=== PATIENT | male | born 1950 | race Caucasian/White ===

== ENCOUNTER 2016-02-13 14:07 | Observation (INO) | payer MEDICARE, OTHER ==
[2016-02-13] MEDS ORDERED: Diltiazem IV* 5 MG/ML 5 ML VIAL (for loading dose/IV Push) (25 MG) IV PUSH ONE (14:50)
[2016-02-13] MEDS ORDERED: NS 0.9% 1000 ML* 2,000 ML IV ONE (14:50)
[2016-02-13] MEDS ORDERED: Diltiazem DRIP* 100 MG/100 ML ADDV.BAG IVPB ONE (14:50)
[2016-02-13 15:10] LABS: Hematocrit 42 % (42-52); Hemoglobin 14.2 g/dl (14.0-18.0); Mean Corpuscular HGB Conc 34 g/dl (31-36); Mean Corpuscular Hemoglobin 33 pg (27-31); Mean Corpuscular Volume 99 fL (80-94); Mean Platelet Volume 10 um3 (7.4-10.4); Red Blood Count 4.24 10^6/ul (4.0-5.4); Red Cell Distribution Width 14 % (10.5-15); White Blood Count 6.5 10^3/ul (3.5-10.8)
--- NOTE | 2016-02-13 15:21 | RAD ---
Indication: Palpitations, cardiomegaly. Mitral valve replacement in 2004. History of endocarditis. Tobacco use. Comparison: January 31, 2012 Technique: Upright AP 1500 hours Report: Clear lungs and pleural spaces. Negative for pneumothorax. Median sternotomy wires. Negative for cardiomegaly. Unremarkable central pulmonary vasculature and mediastinal contours. Mild worsening of LEFT convex curve at the mid to distal thoracic spine compared with the 2012 exam. IMPRESSION: No evidence for acute intrathoracic disease.
[2016-02-13 15:22] LABS: ALT 127 U/L (7-52); AST 187 U/L (13-39); Alkaline Phosphatase 61 U/L (34-104); Anion Gap 8 mmol/L (2-11); BUN/Creatinine Ratio 13.3 (8-20); Blood Urea Nitrogen 13 mg/dL (6-24); CO2 Carbon Dioxide 26 mmol/L (22-32); Calcium 9.2 mg/dL (8.6-10.3); Chloride 104 mmol/L (101-111); EGFR African American 98.1 (>60); EGFR Non-African American 76.3 (>60); Globulin 2.3 g/dL (2-4); Glucose 123 mg/dL (70-100); Magnesium 1.6 mg/dL (1.9-2.7); Potassium 3.9 mmol/L (3.5-5.0); Sodium 138 mmol/L (133-145); Total Protein 6.3 g/dL (6.4-8.9)
[2016-02-13 15:24] LABS: Troponin I 0.01 ng/mL (<0.04)
[2016-02-13] MEDS ORDERED: Magnesium Sulfate 2 GM IV* 2 GM/50 ML BAG IVPB ONE ×2 (15:31→17:29)
[2016-02-13 15:33] LABS: TSH (Thyroid Stimulating Horm) 3.17 mcIU/mL (0.34-5.60)
--- NOTE | 2016-02-13 17:05 | ED ---
I, Oh,Sorene, scribed for Neftali Bolton MD on 02/13/16 at 1449 . Palpitations / Dysrhythmia - HPI Summary HPI Summary: HPI is somewhat limited due to pt being poor historian. Collateral was obtained from daughter present at bedside. This 66 y/o male presents to ED for intermittent rapid, skipping HR since a week ago. Pt states that HR "came down to 60s from time to time". Pt also reports SOB, near syncope, but denies any focal weakness, recent flu symptoms, slurred speech, or CORRAL. PMHx includes afib with hx of electrical cardioversion in 2-3 years ago. Other PMHx includes endocarditis. Pt is currently on metoprolol 25 mg qd, but is not on any blood thinner. Daughter reports that Pt is used to be on ASA but has been noncompliant recently. Primary care involves Dr. Celestin as his clinical trial leader, but pt has neglected to f/u with him recently. Mitral valve repair in 2003. - History of Current Complaint Chief Complaint: EDDysrhythmPalp Time Seen by Provider: 02/13/16 14:34 Hx Obtained From: Patient, Family/Co Director Onset/Duration: Gradual Onset Timing: Intermittent Episodes Lasting: Severity Initially: Moderate Severity Currently: Moderate Character: Fast, Irregular Aggravating: Nothing Alleviating: Nothing Associated Signs & Symptoms: Syncope - near, Shortness of Breath - Allergy/Home Medications Allergies/Adverse Reactions: Allergies Allergy/AdvReac Type Severity Reaction Status Date / Time No Known Allergies Allergy Verified 02/13/16 14:18 Home Medications: Home Medications Metoprolol Succinate XL TAB* [Toprol XL TAB*] 25 mg PO DAILY 02/13/16 [History Confirmed 02/13/16] PMH/Surg Hx/FS Hx/Imm Hx Cardiovascular History: Reports: Hx Atrial Fibrillation, Hx Valvular Heart Disease - MV replacement 1996, Other Cardiovascular Problems/Disorders - endocarditis Musculoskeletal History: Reports: Hx Gout - rt elbow Sensory History: Reports: Hx Contacts or Glasses - glasses not w/ pt at this time Opthamlomology History: Reports: Hx Contacts or Glasses - glasses not w/ pt at this time - Surgical History Surgery Procedure, Year, and Place: MV replaced 1996 Infectious Disease History: No Infectious Disease History: Denies: Traveled Outside the [place] in Last 30 Days - Family History Known Family History: Positive: Cardiac Disease - Mother -- CHF. at 86. , Respiratory Disease - Mother -- COPD. at 86. - Social History Alcohol Use: Daily - 5 beers everyday Hx Substance Use: No Substance Use Type: Reports: None Hx Tobacco Use: Yes Smoking Status (MU): Current Every Day Smoker Review of Systems Negative: Fever Positive: Palpitations. Negative: Chest Pain Positive: Shortness Of Breath Positive: Syncope - near. Negative: Headache, Weakness, Numbness, Slurred Speech All Other Systems Reviewed And Are Negative: Yes Physical Exam - Summary Physical Exam Summary: The patient is well-nourished in no acute distress and in no acute pain. The skin is diaphoretic. HEENT: The head is normocephalic and atraumatic. The pupils are equal and reactive. The conjunctivae are clear and without drainage. Nares are patent and without drainage. Mouth reveals moist mucous membranes and the throat is without erythema and exudate. The external ears are intact. The ear canals are patent and without drainage. The tympanic membranes are intact. Neck is supple with full range of motion and non-tender. There are no carotid bruits. There is no neck vein distension. Respiratory: Chest is non-tender. Lungs are clear to auscultation and breath sounds are symmetrical and equal. Cardiovascular: Hear is irregular and tachycardic. There is no murmur or rub auscultated. There is no peripheral edema and pulses are symmetrical and equal. Abdomen: The abdomen is soft and non-tender. There are normal bowel sounds heard in all four quadrants and there is no organomegaly palpated. Musculoskeletal: There is no back pain noted. Extremities are non-tender with full range of motion. There is good capillary refill. There is no peripheral edema or calf tenderness elicited. No pitting edema Neurological: Patient is alert and oriented to person, place and time. The patient has symmetrical motor strength in all four extremities. Cranial nerves are grossly intact. Deep tendon reflexes are symmetrical and equal in all four extremities. Psychiatric: The patient has an appropriate affect and does not exhibit any anxiety or depression. Triage Information Reviewed: Yes Vital Signs On Initial Exam: Initial Vitals Temp Pulse Resp BP Pulse Ox 98.5 F 135 18 113/80 100 02/13/16 14:15 02/13/16 14:15 02/13/16 14:15 02/13/16 14:15 02/13/16 14:15 Vital Signs Reviewed: Yes Diagnostics - Vital Signs Vital Signs Temp Pulse Resp BP Pulse Ox 02/13/16 14:15 98.5 F 135 18 113/80 100 - Laboratory Lab Results: Lab Results 02/13/16 02/13/16 02/13/16 Range/Units 14:35 14:35 14:35 WBC 6.5 (3.5-10.8) 10^3/ul RBC 4.24 (4.0-5.4) 10^6/ul Hgb 14.2 (14.0-18.0) g/dl Hct 42 (42-52) % MCV 99 H (80-94) fL MCH 33 H (27-31) pg MCHC 34 (31-36) g/dl RDW 14 (10.5-15) % Plt Count 172 (150-450) 10^3/ul MPV 10 (7.4-10.4) um3 Neut % (Auto) 61.3 (38-83) % Lymph % (Auto) 25.7 (25-47) % [place] % (Auto) 6.0 (1-9) % Eos % (Auto) 6.3 H (0-6) % Baso % (Auto) 0.7 (0-2) % Absolute Neuts (auto) 4.0 (1.5-7.7) 10^3/ul Absolute Lymphs (auto) 1.7 (1.0-4.8) 10^3/ul Absolute Monos (auto) 0.4 (0-0.8) 10^3/ul Absolute Eos (auto) 0.4 (0-0.6) 10^3/ul Absolute Basos (auto) 0 (0-0.2) 10^3/ul Absolute Nucleated RBC 0 10^3/ul Nucleated RBC % 0.1 INR (Anticoag Therapy) (0.89-1.11) Sodium 138 (133-145) mmol/L Potassium 3.9 (3.5-5.0) mmol/L Chloride 104 (101-111) mmol/L Carbon Dioxide 26 (22-32) mmol/L Anion Gap 8 (2-11) mmol/L BUN 13 (6-24) mg/dL Creatinine 0.98 (0.67-1.17) mg/dL Est GFR ( Amer) 98.1 (>60) Est GFR (Non-Af Amer) 76.3 (>60) BUN/Creatinine Ratio 13.3 (8-20) Glucose 123 H (70-100) mg/dL Lactic Acid 1.9 (0.5-2.0) mmol/L Calcium 9.2 (8.6-10.3) mg/dL Magnesium 1.6 L (1.9-2.7) mg/dL Total Bilirubin 0.50 (0.2-1.0) mg/dL AST 187 H (13-39) U/L ALT 127 H (7-52) U/L Alkaline Phosphatase 61 (34-104) U/L Troponin I 0.01 (<0.04) ng/mL Total Protein 6.3 L (6.4-8.9) g/dL Albumin 4.0 (3.2-5.2) g/dL Globulin 2.3 (2-4) g/dL Albumin/Globulin Ratio 1.7 (1-3) TSH 3.17 (0.34-5.60) mcIU/mL 02/13/16 Range/Units 14:35 WBC (3.5-10.8) 10^3/ul RBC (4.0-5.4) 10^6/ul Hgb (14.0-18.0) g/dl Hct (42-52) % MCV (80-94) fL MCH (27-31) pg MCHC (31-36) g/dl RDW (10.5-15) % Plt Count (150-450) 10^3/ul MPV (7.4-10.4) um3 Neut % (Auto) (38-83) % Lymph % (Auto) (25-47) % [place] % (Auto) (1-9) % Eos % (Auto) (0-6) % Baso % (Auto) (0-2) % Absolute Neuts (auto) (1.5-7.7) 10^3/ul Absolute Lymphs (auto) (1.0-4.8) 10^3/ul Absolute Monos (auto) (0-0.8) 10^3/ul Absolute Eos (auto) (0-0.6) 10^3/ul Absolute Basos (auto) (0-0.2) 10^3/ul Absolute Nucleated RBC 10^3/ul Nucleated RBC % INR (Anticoag Therapy) 0.98 (0.89-1.11) Sodium (133-145) mmol/L Potassium (3.5-5.0) mmol/L Chloride (101-111) mmol/L Carbon Dioxide (22-32) mmol/L Anion Gap (2-11) mmol/L BUN (6-24) mg/dL Creatinine (0.67-1.17) mg/dL Est GFR ( Amer) (>60) Est GFR (Non-Af Amer) (>60) BUN/Creatinine Ratio (8-20) Glucose (70-100) mg/dL Lactic Acid (0.5-2.0) mmol/L Calcium (8.6-10.3) mg/dL Magnesium (1.9-2.7) mg/dL Total Bilirubin (0.2-1.0) mg/dL AST (13-39) U/L ALT (7-52) U/L Alkaline Phosphatase (34-104) U/L Troponin I (<0.04) ng/mL Total Protein (6.4-8.9) g/dL Albumin (3.2-5.2) g/dL Globulin (2-4) g/dL Albumin/Globulin Ratio (1-3) TSH (0.34-5.60) mcIU/mL Result Diagrams: 02/13/16 14:35 02/13/16 14:35 Lab Statement: Any lab studies that have been ordered have been reviewed, and results considered in the medical decision making process. - Radiology CXR Xray Interpretation: No Acute Changes Radiology Interpretation Completed By: Radiologist - EKG 1 EKG Rhythm: Atrial Fibrillation - RVR, 137 bpm Ectopy: PVCs EKG Interpretation: No ischemia. Nonspecific ST changes Re-Evaluation - Re-Evaluation First Eval Re-Evaluation Time: 16:41 Change: Unchanged Comment: MD in room to share imaging and lab results with pt and family members. Pt is still aflutter at the time of the re-eval. Family members and pt are agreeable to overnight hospital admission. Course/Dx - Diagnoses Differential Diagnosis/HQI/PQRI: Positive: Cardiomyopathy, Hypokalemia, Paroxymal SVT, Other - atrial fibrillation, atrial flutter Provider Diagnoses: Atrial flutter with rapid ventricular response Provider Diagnoses: (Ruled Out): Atrial flutter, paroxysmal - Physician Notifications Discussed Care Of Patient With: Dr. Gutierrez (Hospitalist) at 1547 PM Time Discussed With Above Provider: 15:47 Instructed by Provider To: Admit As Inpatient Discharge - Discharge Plan Condition: Improved Disposition: HOME Referrals: Ravinder Baca MD [Primary Care Provider] - The documentation as recorded by the Isaiah canseco Soohyun accurately reflects the service I personally performed and the decisions made by Che romo Drew, MD.
[2016-02-13] MEDS ORDERED: Metoprolol Tartrate IV* 1 MG/ML 5 ML VIAL IV PRN (17:25)
[2016-02-13] MEDS ORDERED: Acetaminophen TAB* 325 MG PO PRN (17:25)
[2016-02-13] MEDS ORDERED: Potassium Chlor TAB* 20 MEQ TAB.ER PO ONE (17:29)
[2016-02-13] MEDS ORDERED: Zolpidem TAB* 5 MG PO PRN (17:39)
[2016-02-13 17:48] LABS: Alcohol < 10 mg/dL (<10)
[2016-02-13] MEDS: Rivaroxaban TAB(*) 20 MG TAB PO SCH (17:58)
[2016-02-13] MEDS: Metoprolol Succinate XL TAB* 25 MG PO SCH (17:59)
[2016-02-13] MEDS ORDERED: LORazepam TAB(*) 1 MG PO SCH (18:00)
[2016-02-13] MEDS ORDERED: Rivaroxaban TAB(*) 10 MG PO SCH (18:00)
[2016-02-13] MEDS ORDERED: Diltiazem DRIP* 100 MG/100 ML ADDV.BAG IVPB SCH (19:00)
--- NOTE | 2016-02-13 23:00 | HP ---
HISTORY AND PHYSICAL: DATE OF ADMISSION: 02/13/16 PRIMARY CARE PROVIDER: Dr. Baca. ATTENDING PHYSICIAN WHILE IN THE HOSPITAL: Dr. Haile Gutierrez *(report being dictated by Rustam Santiago NP). CHIEF COMPLAINT: Palpitations. HISTORY OF PRESENT ILLNESS: Mr. Lobato is a 66-year-old male patient, has a history of atrial fibrillation, gout, depression, hypertension, history of endocarditis in the past in the setting of having a dental infection and he is status post mitral valve repair. He comes in to the ER today stating over the last 2 to 3 days, he has had worsening palpitations, fluttering in his chest. He has had more dyspnea on exertion. Today, he comes in stating that he was not feeling good. He felt like he was going to faint. He felt very lightheaded , having more palpitations, lasting longer. He took an extra 2 doses of his metoprolol XL, hopeful that he could slow down his rhythm, but he could not. He denied any chest pain. Does admit to dyspnea on exertion, but no orthopnea, no nocturnal dyspnea. Denies any swelling. No recent travel. No calf pain or leg tenderness. He was evaluated in the ER and was found that he was in AFib with RVR with a rate of 137. He has been cardioverted in the past. He normally sees Dr. Celestin, but he has not seen him in 3 years. He does state that he is still continuing to consume alcohol 5 to 6 beers a day. He does drink a cup of coffee in the morning and he also continues to smoke cigarettes. He was evaluated. There was concern because of the AFib with RVR. Hospitalist service was asked to evaluate for admission. PAST MEDICAL HISTORY: Significant for: 1. AFib. 2. Gout. 3. Depression. 4. Hypertension. 5. History of endocarditis. PAST SURGICAL HISTORY: He has had a mitral valve replacement. HOME MEDICATIONS: Include according to his list: 1. Paxil 20 mg daily. 2. Multivitamin 1 tablet daily. 3. Metoprolol XL 25 mg daily. 4. Lisinopril 5 mg daily. 5. Aspirin 81 mg daily. He says he stopped taking this several months ago. 6. Allopurinol 300 mg p.o. daily. ALLERGIES TO MEDICATIONS: Include no known drug allergies. FAMILY HISTORY: His mother had COPD and CHF. Father had a history of dementia. SOCIAL HISTORY: He is a half a pack a day smoker for about 40 years. He does drink caffeine on a daily basis. He drinks 5 to 6 beers a day. He is retired. Lives with his children. Surrogate decision maker is his daughter. REVIEW OF SYSTEMS: There is no documented fever. He denied having any significant weight change. There was no double vision. There was no ear discharge. No rhinorrhea. No sore throat. No thyroid enlargement. Denies having chest pain. There is palpitation. There is dyspnea on exertion. No orthopnea. No nocturnal dyspnea. No abdominal pain. No nausea. No vomiting. No dysuria. No frequency. No seizure. No loss of consciousness. No pruritus. No skin ulcerations. Review of 14 systems completed, all others negative. PHYSICAL EXAMINATION GENERAL: At this time, Mr. Lobato is a 66-year-old male patient. He does not appear to be in any acute distress. He is sitting in the ER stretcher. He is awake and he is alert. VITAL SIGNS: Blood pressure 124/75, pulse 87, respirations 18, O2 sat 96%, temperature 98.5. HEENT: Head: Atraumatic and normocephalic. Eyes: EOMs are intact. Sclerae anicteric and not pale. Throat: Oral mucosa appears to be moist. No oropharyngeal erythema. NECK: Supple. LUNGS: Clear to auscultation bilaterally. No wheezes, rales, or rhonchi. HEART: Sounds S1, S2. Irregularly irregular rate. No murmurs, rubs, or gallops. ABDOMEN: Soft, flat, nontender. Bowel sounds present. EXTREMITIES: Pulses 2+ throughout. Able to move all 4 extremities with 5/5 strength. NEUROLOGIC: The patient is awake, alert, and oriented x3. Tongue midline. Staff Attorney were equal. No gross focal deficits. SKIN: Grossly intact. LABORATORY DATA AND DIAGNOSTIC STUDIES: Today revealed WBC 6.5, RBC of 4.24, hemoglobin 14.2, hematocrit 42, platelet count 172. INR was 0.98. His sodium was 138, potassium 3.9, chloride 104, bicarb 26, BUN 13, creatinine 0.98, glucose 123, lactic 1.9, calcium 9.20. Total bili 0.5, AST 187, ALT 127, magnesium 1.6. Troponin 0.01. Albumin 4.0. His serum alcohol level is pending. He did have a chest x-ray obtained today which on my review, did not appreciate any acute infiltrates or effusions. Radiology read it as no evidence of acute intrathoracic disease. EKG today showed irregular rhythm. It may be atrial flutter with a 2:1 at a rate of 137. He had PVCs. He had no ST elevations or T-wave inversions. Previous EKGs do reveal atrial fibrillation in the past, the change today is that again that he is in now atrial flutter. Currently, his heart rate is 86 and he is in atrial fibrillation. Old medical records were reviewed. ASSESSMENT AND PLAN: Mr. Lobato is a 66-year-old male patient coming into the ER today with complaints of palpitations over the last 2 to 3 days. In addition to this, also has been having some issues today with shortness of breath, dyspnea on exertion, and feeling like he was going to faint. On evaluation here, he was found to be in atrial fibrillation with RVR. He will be admitted under observation status for: 1. Atrial fibrillation: At this point, the patient's heart rate is controlled. I am going to go ahead and give him a dose of metoprolol. I have actually increased him from 25 to 37.5 mg a day. We will give him a dose of that now with p.r.n. beta blockers. I have ordered p.r.n. Lopressor. I am going to try to get him off the diltiazem drip. We will start Xarelto. I did touch base with Cardiology. The plan will be for a [facility]-guided cardioversion. I had a long discussion about abstaining from caffeine, alcohol, and cigarette smoking for the time being. His mag was 1.6. I am going to give him another 2 g. In addition to this, I am going to get his potassium hopefully above 3.9 and in the 4 range. We will repeat the labs in the morning and his magnesium in the morning and repeat as needed. He will be n.p.o. after midnight for a planned ROO[facility]T-guided cardioversion. He will be started on Xarelto. 2. Gout: Continue allopurinol. 3. Hypertension: Continue meds as prescribed. 4. History of depression: Continue Paxil. 5. History of endocarditis: Not an active issue. We will follow. 6. DVT prophylaxis: He will be placed on Xarelto. 7. Code status: He is a full code. 8. FEN: He can have a heart healthy diet and n.p.o. after midnight. 9. History of ETOH use: At this point, we will go ahead and put him on a WAM protocol. 10. Tobacco abuse: I did discuss with him smoking cessation. He did not want a patch at this point. TIME SPENT: Time spent on the admission was 60 minutes; greater than half the time was spent [id number] with the patient obtaining my history and physical, other half the time spent going over the plan of care with the patient and implementing plan of care. I did discuss the plan of care with my attending, Dr. Gutierrez; he is in agreement. RUSTAM SANTIAGO NP CC: Dr. Baca; Dr. Barbosa; Dr. Celestin* [id number]/[facility] #: [id number] [facility]
[2016-02-14] MEDS ORDERED: NS 0.9% 1000 ML* 1,000 ML IV SCH
[2016-02-14 01:26] LABS: Urine Bilirubin Negative (Negative); Urine Glucose Negative (Negative); Urine Nitrite Negative (Negative)
[2016-02-14 04:47] LABS: Hematocrit 39 % (42-52); Hemoglobin 13.1 g/dl (14.0-18.0); Mean Corpuscular HGB Conc 33 g/dl (31-36); Mean Corpuscular Hemoglobin 33 pg (27-31); Mean Corpuscular Volume 100 fL (80-94); Mean Platelet Volume 10 um3 (7.4-10.4); Red Blood Count 3.94 10^6/ul (4.0-5.4); Red Cell Distribution Width 14 % (10.5-15); White Blood Count 5.4 10^3/ul (3.5-10.8)
[2016-02-14 04:59] LABS: Albumin 3.4 g/dL (3.2-5.2); Calcium 8.5 mg/dL (8.6-10.3); Direct Bilirubin 0.1 mg/dL (0.03-0.18); EGFR African American 105.5 (>60); EGFR Non-African American 82.1 (>60); Indirect Bilirubin 0.4 mg/dL (0.3-1.0); Magnesium 2.2 mg/dL (1.9-2.7); Potassium 4.6 mmol/L (3.5-5.0); Total Bilirubin 0.5 mg/dL (0.2-1.0); Total Protein 5.4 g/dL (6.4-8.9)
[2016-02-14] MEDS ORDERED: Folic Acid TAB* 1 MG PO SCH (09:00)
[2016-02-14] MEDS ORDERED: Allopurinol TAB* 300 MG PO SCH (09:00)
[2016-02-14] MEDS ORDERED: Thiamine TAB* 100 MG TAB PO SCH (09:00)
[2016-02-14] MEDS ORDERED: PARoxetine HCL TAB* 20 MG PO SCH (09:00)
[2016-02-14] MEDS ORDERED: Multivitamins/Minerals TAB PO SCH (09:00)
[2016-02-14] MEDS ORDERED: Lisinopril TAB* 5 MG PO SCH (09:00)
--- NOTE | 2016-02-14 10:12 | CONS ---
CARDIOLOGY CONSULTATION: DATE OF CONSULT: 02/14/16 INDICATION FOR CONSULT: Atrial fibrillation. HISTORY OF PRESENT ILLNESS: The patient is a 66-year-old gentleman with a history of mitral valve repair secondary to mitral valve prolapse, history of paroxysmal atrial fibrillation, who is admitted to the hospital with atrial fibrillation. The patient states that he noted that his heart was irregular about a week ago. He felt little bit more short of breath and then ultimately decided to come to the emergency room for his palpitations. The patient was found to be in atrial fibrillation. He was admitted to the hospital for evaluation. The patient's heart rate is under reasonable control here in the hospital. The patient denies any chest pain, orthopnea. PAST MEDICAL HISTORY: Significant for paroxysmal atrial fibrillation, gout, depression, hypertension. PAST SURGICAL HISTORY: Mitral valve repair in 2003, history of cardioversion in 2003 and 2011. OUTPATIENT MEDICATIONS: 1. Paxil 20 mg a day. 2. Multivitamin a day. 3. Toprol-XL 25 mg a day. 4. Lisinopril 5 mg a day. 5. Allopurinol 300 mg a day. ALLERGIES: No known drug allergies. FAMILY HISTORY: Father with a history of dementia. No history of early coronary artery disease. SOCIAL HISTORY: He smokes cigarettes about pack a day for the past 40 years. He drinks 4 to 5 beers a day. He is currently retired. REVIEW OF SYSTEMS: Negative for fevers and chills. Negative for changes in bowel or bladder habits. Negative in changes in weight. PHYSICAL EXAM: Height is 5 feet 9 inches, weight is 165 pounds, his heart rate is 82, blood pressure 131/89, respiratory rate is 16, temperature 97.5, oxygen saturation 97% on room air. Sclerae anicteric. Oropharynx is pink without erythema. Carotids are 2+ without bruits. JVD is normal. Thyroid is normal. Cardiac Exam: S1, S2 without any murmurs, rubs, or gallops. Lungs are clear to auscultation bilaterally. There is no dullness to percussion. Abdomen is soft, nontender, nondistended with normoactive bowel sounds. Extremities show no edema. He has 2+ pulses throughout. The patient is awake, alert, and oriented. He moves all 4 extremities equally. DIAGNOSTIC STUDIES/LAB DATA: The patient had a transesophageal echocardiogram in May of 2012, at that time, he was status post mitral valve repair, he had trace mitral regurgitation, he had mildly decreased LV systolic function, ejection fraction of 40%, no significant other valvular abnormalities. CBC within normal limits. Chemistries within normal limits. AST and ALT are minimally elevated. Troponin levels are normal. TSH 3.1. IMPRESSION: This is a 66-year-old gentleman with a history of mitral valve repair who has a history of paroxysmal atrial fibrillation. The patient states he has been in atrial fibrillation for about a week. The patient was admitted to the hospital. He was not in congestive heart failure. His heart rate was under reasonable control. PLAN: To have the patient undergo transesophageal echocardiogram and cardioversion back to normal sinus rhythm. The patient will be discharged on his usual medications with the addition of anticoagulation. The patient will see Dr. Celestin in followup. [id number] #: [id number] MATTHE[facility]
[2016-02-14] MEDS ORDERED: Naloxone* 0.4 MG/ML 1 ML VIAL ONE (10:50)
[2016-02-14] MEDS ORDERED: Flumazenil* 0.1 MG/ML 5 ML MDV ONE (10:50)
[2016-02-14] MEDS ORDERED: Lidocaine 2% VISCOUS* 15 ML UDC ONE (10:50)
[2016-02-14] MEDS ORDERED: fentaNYL* 50 MCG/ML 2 ML VIAL (100 MCG VIAL) ONE (10:50)
[2016-02-14] MEDS ORDERED: Midazolam* 1 MG/ML 5 ML VIAL (5 MG) ONE (10:50)
[2016-02-14] MEDS: Metoprolol Succinate XL TAB* 25 MG PO SCH (13:40)
[2016-02-14 14:29] VITALS: BP 120/79
--- NOTE | 2016-02-14 15:09 | TEE ---
Patient: ZANE BERRIOS [facility] Rec#: [id number] : 1950 Date: 02/14/2016 Age: 66y Height: 175.26 cm / 69.0 in Weight: 74.84 kg / 164.9 lbs Sex: M BSA: 1.9 Room#: 434 Type: Inpatient Referring: Rustam Santiago NP Performing: Sahil Alatorre MD Reading: Sahil Alatorre MD [employer] [place] Crew Member: Ondina Albert RDCS Nurse: Marian Noyola RN Nurse: Mauro Chan RN CC: Ravinder Baca MD Transesophageal Echocardiogram Indication: A-fib BP: 123/93 HR: 110 Rhythm: A-Fib Findings History: A-fib,gout,prior endocarditis,SIMMONS,ETOH,smoker. Technical Comments: The study is technically difficult. Pt was unruly during the procedure. Left Ventricle: The left ventricular chamber size is normal. Mild global hypokinesis of the left ventricle is observed. There is mildly decreased left ventricular systolic function. The estimated ejection fraction is 40-45%. Left Atrium: The left atrial chamber size is normal. There is no mass visualized in the left atrial appendage. The appendage has the appearance that it has been ligated. Right Ventricle: The right ventricular cavity size is normal. The right ventricular global systolic function is normal. Right Atrium: The right atrial cavity size is normal. Aortic Valve: The aortic valve is trileaflet. There is no evidence of aortic regurgitation. There is no evidence of aortic stenosis. Mitral Valve: There is prolapse of the anterior leaflet of the mitral valve. S/P MV repair There is mild to moderate mitral regurgitation. Tricuspid Valve: The tricuspid valve leaflets are normal. There is mild to moderate tricuspid regurgitation. Unable to estimate the right ventricular systolic pressure. Pulmonic Valve: The pulmonic valve appears normal. There is trace to mild pulmonic regurgitation. There is no pulmonic stenosis. Pericardium: There is no pericardial effusion. Aorta: There is borderline dilatation of the ascending aorta. The aortic root is normal in size. Pulmonary Artery: The main pulmonary artery appears normal. Venous: The bicaval view was unable to be obtained. Pulmonary veins were no interrogated. ROOSEVELT Procedures: History and physical as well as labs were reviewed. The patient was in a fasting state. Risks and benefits of the procedure, including alternatives, were discussed and written informed consent was obtained. The patient and/or their health care client care representative expressed understanding of the procedure, risks and benefits. Baseline and continuous monitoring of blood pressure, heart rate, pulse oximetry and heart rhythm was performed throughout the procedure. The appropriate time-out procedure was performed as per [facility] protocol. The patient was placed in the left lateral decubitus position. The patient's posterior pharynx was anesthetized with 20ml of 2% viscous lidocaine. The patient received IV Midazolam with a total dose of 7mg. The patient received IV Fentanyl with a total dose of 50mcg. An oral bite block was inserted for protection of oral dentition. The multiplane transesophageal echocardiogram probe was inserted through the posterior oropharynx and advanced into the esophagus without difficulty. Multiple 2D images were obtained of the heart and its related structures. Color flow Doppler was used for evaluation. Spectral Doppler was also used. The atrial septum was interrogated with color flow Doppler. At the conclusion of the procedure the probe was removed with continuous suction without complications. The patient tolerated the procedure with no apparent complications. Conclusions Mild global hypokinesis of the left ventricle is observed. There is mildly decreased left ventricular systolic function. The estimated ejection fraction is 40-45%. There is no mass visualized in the left atrial appendage. The appendage has the appearance that it has been ligated. The right ventricular global systolic function is normal. There is no evidence of aortic regurgitation. There is prolapse of the anterior leaflet of the mitral valve. S/P MV repair There is mild to moderate mitral regurgitation. There is mild to moderate tricuspid regurgitation. Unable to estimate the right ventricular systolic pressure. There is no pericardial effusion. Compared to ROOSEVELT from 2013 there is little change Measurements Name Value Normal Range Aortic Annulus 2.1 cm (1.4 - 2.6) Ao root diameter (2D) 3.5 cm (2.1 - 3.5) Ascending Ao 3.4 cm (2.1 - 3.4) Name Value Normal Range MV E-wave Vmax 1.1 m/sec - MV deceleration time 154 msec - Name Value Normal Range TR Vmax 2.5 m/sec - TR peak gradient 26 mmHg -
--- NOTE | 2016-02-14 16:05 | PN ---
Subjective Date of Service: 02/14/16 Interval History: Patient seen and examined at bedside. He is s/p ROOSEVELT cardioversion and is now in SR. He denies CP, SOB, abd pain, n/v. He has no acute complaints. He is hopeful for discharge later today. Telemetry: NSR 70s Family History: Unchanged from Admission Social History: Unchanged from Admission Past Medical History: Unchanged from Admission Objective Active Medications: Acetaminophen (Tylenol Tab*) 650 mg PO Q4H PRN PRN Reason: FEVER/PAIN Allopurinol (Zyloprim Tab*) 300 mg PO DAILY [facility] Last Admin: 02/14/16 13:39 Dose: 300 mg Dronedarone (Multaq Tab*) 400 mg PO BID [facility] Folic Acid (Folvite Tab*) 1 mg PO DAILY [facility] Last Admin: 02/14/16 13:40 Dose: 1 mg Sodium Chloride (Ns 0.9% 1000 Ml*) 1,000 mls @ 75 mls/hr IV PER RATE [facility] Last Admin: 02/14/16 00:10 Dose: 75 mls/hr Lisinopril (Prinivil Tab*) 5 mg PO DAILY [facility] Last Admin: 02/14/16 13:40 Dose: 5 mg Lorazepam (Ativan Tab(*)) 0 mg PO .PER WAM SCORE [facility] PRN Reason: Protocol Metoprolol Succinate (Toprol Xl Tab*) 37.5 mg PO DAILY [facility] Last Admin: 02/14/16 13:40 Dose: 37.5 mg Metoprolol Tartrate (Lopressor Iv*) 5 mg IV Q6H PRN PRN Reason: HEART RATE/PULSE Multivitamins/Minerals (Theragran/Minerals Tab*) 1 tab PO DAILY [facility] Last Admin: 02/14/16 13:42 Dose: 1 tab Paroxetine HCl (Paxil Tab*) 20 mg PO DAILY [facility] Last Admin: 02/14/16 13:42 Dose: 20 mg Rivaroxaban (Xarelto (*)) 20 mg PO 1700 [facility] Last Admin: 02/13/16 17:58 Dose: 20 mg Thiamine HCl (Vitamin B-1 Tab*) 100 mg PO DAILY [facility] Last Admin: 02/14/16 13:43 Dose: 100 mg Zolpidem Tartrate (Ambien Tab*) 5 mg PO BEDTIME PRN PRN Reason: INSOMNIA Last Admin: 02/13/16 20:01 Dose: 5 mg Vital Signs 02/13/16 02/13/16 02/13/16 17:30 19:20 20:23 Temperature 97.4 F 97.8 F Pulse Rate 86 87 89 Respiratory 16 16 16 Rate Blood Pressure 122/78 116/98 104/72 (mmHg) O2 Sat by Pulse 96 95 99 Oximetry 02/13/16 02/13/16 02/14/16 21:51 23:13 01:07 Temperature 97.5 F 97.5 F 98.1 F Pulse Rate 90 82 64 Respiratory 16 16 16 Rate Blood Pressure 105/60 131/89 121/72 (mmHg) O2 Sat by Pulse 100 97 100 Oximetry 02/14/16 02/14/16 02/14/16 03:12 04:58 07:14 Temperature 98.4 F 97.6 F 97.8 F Pulse Rate 88 80 85 Respiratory 16 16 16 Rate Blood Pressure 127/81 124/87 121/90 (mmHg) O2 Sat by Pulse 98 95 99 Oximetry 02/14/16 02/14/16 02/14/16 09:10 12:30 14:08 Temperature 98.4 F 97.8 F 97.7 F Pulse Rate 86 69 74 Respiratory 16 14 16 Rate Blood Pressure 123/93 103/71 120/79 (mmHg) O2 Sat by Pulse 96 99 99 Oximetry Oxygen Devices in Use Now: None Appearance: Male patient, well appearing, sitting up in hospital bed, in NAD Eyes: PERRLA Ears/Nose/Mouth/Throat: Clear Oropharnyx, Mucous Membranes Moist Neck: NL Appearance and Movements; NL JVP Respiratory: Symmetrical Chest Expansion and Respiratory Effort, Clear to Auscultation Cardiovascular: NL Sounds; No Murmurs; No JVD, RRR Abdominal: NL Sounds; No Tenderness; No Distention Extremities: No Edema Skin: No Rash or Ulcers Neurological: Alert and Oriented x 3 Lines/Tubes/Other Access: Clean, Dry and Intact Peripheral IV Nutrition: Taking PO's Result Diagrams: 02/14/16 04:16 02/14/16 04:16 Additional Lab and Data: Lab Results 02/13/16 02/13/16 02/13/16 Range/Units 14:35 14:35 14:35 WBC 6.5 (3.5-10.8) 10^3/ul RBC 4.24 (4.0-5.4) 10^6/ul Hgb 14.2 (14.0-18.0) g/dl Hct 42 (42-52) % MCV 99 H (80-94) fL MCH 33 H (27-31) pg MCHC 34 (31-36) g/dl RDW 14 (10.5-15) % Plt Count 172 (150-450) 10^3/ul MPV 10 (7.4-10.4) um3 Neut % (Auto) 61.3 (38-83) % Lymph % (Auto) 25.7 (25-47) % Foard % (Auto) 6.0 (1-9) % Eos % (Auto) 6.3 H (0-6) % Baso % (Auto) 0.7 (0-2) % Absolute Neuts (auto) 4.0 (1.5-7.7) 10^3/ul Absolute Lymphs (auto) 1.7 (1.0-4.8) 10^3/ul Absolute Monos (auto) 0.4 (0-0.8) 10^3/ul Absolute Eos (auto) 0.4 (0-0.6) 10^3/ul Absolute Basos (auto) 0 (0-0.2) 10^3/ul Absolute Nucleated RBC 0 10^3/ul Nucleated RBC % 0.1 INR (Anticoag Therapy) (0.89-1.11) Sodium 138 (133-145) mmol/L Potassium 3.9 (3.5-5.0) mmol/L Chloride 104 (101-111) mmol/L Carbon Dioxide 26 (22-32) mmol/L Anion Gap 8 (2-11) mmol/L BUN 13 (6-24) mg/dL Creatinine 0.98 (0.67-1.17) mg/dL Est GFR ( Amer) 98.1 (>60) Est GFR (Non-Af Amer) 76.3 (>60) BUN/Creatinine Ratio 13.3 (8-20) Glucose 123 H (70-100) mg/dL Lactic Acid 1.9 (0.5-2.0) mmol/L Calcium 9.2 (8.6-10.3) mg/dL Magnesium 1.6 L (1.9-2.7) mg/dL Total Bilirubin 0.50 (0.2-1.0) mg/dL AST 187 H (13-39) U/L ALT 127 H (7-52) U/L Alkaline Phosphatase 61 (34-104) U/L Troponin I 0.01 (<0.04) ng/mL Total Protein 6.3 L (6.4-8.9) g/dL Albumin 4.0 (3.2-5.2) g/dL Globulin 2.3 (2-4) g/dL Albumin/Globulin Ratio 1.7 (1-3) TSH 3.17 (0.34-5.60) mcIU/mL 02/13/16 Range/Units 14:35 WBC (3.5-10.8) 10^3/ul RBC (4.0-5.4) 10^6/ul Hgb (14.0-18.0) g/dl Hct (42-52) % MCV (80-94) fL MCH (27-31) pg MCHC (31-36) g/dl RDW (10.5-15) % Plt Count (150-450) 10^3/ul MPV (7.4-10.4) um3 Neut % (Auto) (38-83) % Lymph % (Auto) (25-47) % Foard % (Auto) (1-9) % Eos % (Auto) (0-6) % Baso % (Auto) (0-2) % Absolute Neuts (auto) (1.5-7.7) 10^3/ul Absolute Lymphs (auto) (1.0-4.8) 10^3/ul Absolute Monos (auto) (0-0.8) 10^3/ul Absolute Eos (auto) (0-0.6) 10^3/ul Absolute Basos (auto) (0-0.2) 10^3/ul Absolute Nucleated RBC 10^3/ul Nucleated RBC % INR (Anticoag Therapy) 0.98 (0.89-1.11) Sodium (133-145) mmol/L Potassium (3.5-5.0) mmol/L Chloride (101-111) mmol/L Carbon Dioxide (22-32) mmol/L Anion Gap (2-11) mmol/L BUN (6-24) mg/dL Creatinine (0.67-1.17) mg/dL Est GFR ( Amer) (>60) Est GFR (Non-Af Amer) (>60) BUN/Creatinine Ratio (8-20) Glucose (70-100) mg/dL Lactic Acid (0.5-2.0) mmol/L Calcium (8.6-10.3) mg/dL Magnesium (1.9-2.7) mg/dL Total Bilirubin (0.2-1.0) mg/dL AST (13-39) U/L ALT (7-52) U/L Alkaline Phosphatase (34-104) U/L Troponin I (<0.04) ng/mL Total Protein (6.4-8.9) g/dL Albumin (3.2-5.2) g/dL Globulin (2-4) g/dL Albumin/Globulin Ratio (1-3) TSH (0.34-5.60) mcIU/mL Assess/Plan/Problems-Billing Assessment: Mr. Lobato is a 66 yo male with a PMH of afib, gout, HTN, depression, and endocarditis who presented to the ED on 02/12/15 with atrial fibrillation with RVR. - Patient Problems (1) Atrial fibrillation with rapid ventricular response Code(s): I48.91 - UNSPECIFIED ATRIAL FIBRILLATION Comment: PAF s/p ROOSEVELT cardioversion, now in NSR Continue metoprolol at increased dose Continue Xarelto Outpatient follow-up with Dr. Celestin Patient advised to limit or stop caffeine, alcohol, and tobacco use. (2) HTN (hypertension) Code(s): I10 - ESSENTIAL (PRIMARY) HYPERTENSION Comment: Continue lisinopril and metoprolol. (3) Gout Code(s): M10.9 - GOUT, UNSPECIFIED Comment: Continue allopurinol. (4) Depression Code(s): F32.9 - MAJOR DEPRESSIVE DISORDER, SINGLE EPISODE, UNSPECIFIED Comment: Continue Paxil. (5) Tobacco abuse Code(s): Z72.0 - TOBACCO USE Comment: Patient advised to quit smoking. Smoking cessation education provided during admission. Patient decline NRT while in hospital. (6) Alcohol abuse, daily use Code(s): F10.10 - ALCOHOL ABUSE, UNCOMPLICATED Comment: WAM protocol, patient scoring 0-1, no active withdrawal Counseling provided re: limiting alcohol consumption (7) DVT prophylaxis Comment: Xarelto Status and Disposition: OBV admit.
[2016-02-14] MEDS ORDERED: Dronedarone TAB* 400 MG PO SCH ×2 (17:06→21:00)
[2016-02-14] MEDS: Rivaroxaban TAB(*) 20 MG TAB PO SCH (17:44)
[2016-02-14] MEDS ORDERED: Apixaban* 5 MG TAB PO SCH (18:00)
--- NOTE | 2016-02-14 22:43 | CARD ---
PROCEDURE REPORT: DATE OF PROCEDURE: 02/14/16 PROCEDURE: Cardioversion. INDICATION: Atrial fibrillation. HISTORY: The patient is a 66-year-old gentleman with a history of mitral valve repair back in 2003, who has paroxysmal atrial fibrillation. The patient was admitted to the hospital yesterday with atrial fibrillation that he thinks has been going on for a week. The patient had just undergone transesophageal echocardiogram which showed an ejection fraction of 40%, no evidence of clots in the left atrium and the left atrial appendage had been ligated. The patient' s mitral valve appeared to be normal. There is mild mitral regurgitation. Cardioversion was recommended. DESCRIPTION OF PROCEDURE: The patient was given an additional 2 mg of Versed for conscious sedation. The patient was cardioverted with 150 joules of synchronized biphasic energy. The patient converted to normal sinus rhythm. The patient tolerated the procedure well with no complications. The patient will be discharged home. The patient will be continued on Xarelto. He will be started on Multaq 400 mg twice a day. The patient will follow up with Dr. Celestin in 2 to 3 weeks. CC: Dr. Celestin* [id number]/CPS #: [id number] MTDD
--- NOTE | 2016-02-17 19:14 | DS ---
MEDICINE DISCHARGE SUMMARY: DATE OF ADMISSION: 02/13/16 DATE OF DISCHARGE: 02/14/16 PROVIDER: Yamil Calle NP ATTENDING PHYSICIAN: Dr. Rodri Atkins *(as dictated by Yamil Calle NP). CONSULTING PHYSICIAN: Dr. Sahil Alatorre, Cardiology. PRIMARY CARE PHYSICIAN: Dr. Baca. PRIMARY DISCHARGE DIAGNOSIS: Atrial fibrillation with rapid ventricular rate. SECONDARY DISCHARGE DIAGNOSES: 1. Gout. 2. Depression. 3. Hypertension. 4. History of endocarditis. 5. Tobacco abuse. 6. Chronic alcohol use. MEDICATIONS AT DISCHARGE: 1. Paroxetine 20 mg daily. 2. Multivitamin 1 tab daily. 3. Metoprolol succinate XL 25 mg daily. 4. Aspirin 81 mg daily. 5. Lisinopril 5 mg daily. 6. Allopurinol 300 mg daily. New medications at discharge: 1. Dronedarone 400 mg b.i.d. 2. Apixaban 5 mg b.i.d. DIAGNOSTIC STUDIES DURING THE PATIENT'S STAY: Transesophageal echocardiogram. Conclusion: Mild global hypokinesis of the left ventricle is observed. There is mildly decreased left ventricular systolic function. The estimated ejection fraction is 40% to 45%. There is no mass visualized in the left atrial appendage. The appendage has the appearance that has been ligated. The right ventricular global systolic function is normal. There is no evidence of aortic regurgitation. There is prolapse of the anterior leaflet of the mitral valve, status post mitral valve repair. There is uife-ek-ebjbndke mitral regurgitation. There is mild-to- moderate tricuspid regurgitation. Unable to estimate the right ventricular systolic pressure. There are no pericardial effusions. Compared to ROOSEVELT from 2013, there is a little change. Chest x-ray on 02/13/16 shows no evidence for acute intrathoracic disease. HOSPITAL COURSE OF STAY: For full details, please refer to H and P provided by Rustam Santiago NP, on 02/13/16. In summary, Mr. Lobato is a 66-year-old patient with a past medical history as stated above, who presented to the ED with palpitations and dyspnea on exertion. The patient follows with Dr. Celestin in the outpatient setting, but states that he has not seen him in 3 years. He did have a previous history of cardioversion and did attempt to slow his rate down with extra metoprolol doses. He does admit to frequent alcohol use stating he consumes approximately 5 or 6 beers a day, also consumes daily coffee , and continues to smoke cigarettes. The patient was started on Xarelto and received metoprolol as well as a diltiazem drip initially for his AFib with RVR. The following morning, the patient did undergo a ROOSEVELT-guided cardioversion with successful cardioversion. He tolerated the procedure well and remained in normal sinus rhythm. I did discuss the patient following his procedure with Dr. Alatorre. There was concern by nursing that the patient did have a couple of dropped beats, but Dr. Alatorre stated that if the patient felt well, he was okay for discharge at this time. He did ask that the patient will be started on Multaq, which I have prescribed and that he be continued on anticoagulation. The patient again was started here on Xarelto, which I did discuss with the family. The patient and his family were very agitated over being prescribed Xarelto, stating that they had multiple friends and family members who are on Xarelto, who had terrible reactions and bleeding episodes. I did explain the nature of anticoagulation and the risk of bleeding that exists with all anticoagulant agents. They were able to verbalize understanding of this. They did initially request to be on Coumadin; however, I explained to the patient that he would need to be compliant with diet and multiple lab followups and would need to decrease alcohol intake. The patient declined to continue on warfarin. I did offer Eliquis, which they agree to, as long as it was not Xarelto. Again, I did review the risks of Eliquis, which are similar to that of Xarelto and that the patient would be at risk of increased bleeding. I did also advise him to decrease his alcohol intake as well as quit smoking. He did receive this information, but did not make any definitive decisions during our conversation. At the time of discharge, the patient is currently denying chest pain, shortness of breath, was ambulatory, tolerating p.o. intake, and eager to go home. CONCERNS AT DISCHARGE: The patient will be discharged to home on 02/14/16 with a plan to follow up with his PCP and Cardiology. DIET: Heart-healthy diet. ACTIVITY: As tolerated. CONDITION: Stable. DISPOSITION: To home. TIME SPENT: Time spent on this discharge was approximately 40 minutes. Again, this is only a brief summary of the patient's hospital course of stay. For full details, please refer to the full medical record. If you have any further questions or need any further assistance, please feel free to contact me at . YAMIL CALLE NP CC: Dr. Baca* [id number]/[facility] #: [id number] MATTHEW
== END 2016-02-14 18:00 | disposition home or self-care (01) ==
LOC: ED 14:07 → MEDTELE 17:20
PROVIDERS: ADMIT Internal Medicine; ATTEND Hospitalist
DX: I48.0 Paroxysmal atrial fibrillation (principal); I10 Essential (primary) hypertension; M10.9 Gout, unspecified; F32.9 Major depressive disorder, single episode, unspecified; Z79.899 Other long term (current) drug therapy; F17.210 Nicotine dependence, cigarettes, uncomplicated; R06.02 Shortness of breath; F10.10 Alcohol abuse, uncomplicated; I49.3 Ventricular premature depolarization
CPT/HCPCS: 36415; 71010; 80048; 80053; 80076; 80320; 81003; 83605; 83735; 84443; 84484; 85025; 85610; 92960; 93005; 93312; 93325; 96361; 96365; 96366; 96375; 99285; A9270-GY; G0378; G0480; J2250; J2310; J3010; J3475

== ENCOUNTER 2019-03-11 01:50 | Inpatient (IN) | payer MEDICARE ==
[2019-03-11] MEDS ORDERED: NS 0.9% 1000 ML** 1,000 ML IV ONE (02:20)
[2019-03-11 02:59] LABS: ABS Eosinophils 0.3 10^3/ul (0-0.6); ABS Lymphocytes 0.9 10^3/ul (1.0-4.8); ABS Monocytes 0.6 10^3/ul (0-0.8); Eosinophil % 4.2 %; Hematocrit 40 % (42-52); Lymphocyte % 11.5 %; Mean Corpuscular HGB Conc 35 g/dL (31-36); Mean Corpuscular Hemoglobin 35 pg (27-31); Mean Corpuscular Volume 99 fL (80-94); Mean Platelet Volume 8.8 fL (7.4-10.4); Platelet Count 153 10^3/uL (150-450); Red Blood Count 4.02 10^6 /uL (4.18-5.48); Red Cell Distribution Width 14 % (10-15); White Blood Count 7.8 10^3/uL (3.5-10.8)
[2019-03-11 03:08] LABS: INR 1.1 (0.82-1.09)
[2019-03-11 03:15] LABS: ALT 44 U/L (7-52); Albumin 3.6 g/dL (3.2-5.2); Albumin/Globulin Ratio 1.6 (1-3); Alkaline Phosphatase 77 U/L (34-104); BUN/Creatinine Ratio 17.3 (8-20); Blood Urea Nitrogen 18 mg/dL (6-24); CO2 Carbon Dioxide 26 mmol/L (22-32); Calcium 8.7 mg/dL (8.6-10.3); Chloride 108 mmol/L (101-111); EGFR African American 85.4 (>60); EGFR Non-African American 70.6 (>60); Globulin 2.3 g/dL (2-4); Glucose 109 mg/dL (70-100); Magnesium 1.6 mg/dL (1.9-2.7); Sodium 139 mmol/L (135-145); Total Protein 5.9 g/dL (6.4-8.9)
--- NOTE | 2019-03-11 03:18 | ED ---
Complex/Multi-Sys Presentation - HPI Summary HPI Summary: 69 year old M presenting to [facility] accompanied by EMS and a female senior financial complains of a second seizure in three weeks earlier today 03/11/2019. Female senior financial reports seizure was witnessed by her and that it lasted for 15 -20 minutes and that the pt's eyes were closed for most of it. The pt looked confused before dropping to the floor and hitting his head according to the female senior financial's . Pt reports that he had no memory of episode until he was in the ambulance. Female senior financial says he has left arm and back pain from the episode. The patient rates the pain 0/10 in severity. Symptoms aggravated by nothing. Symptoms alleviated by nothing. - History Of Current Complaint Chief Complaint: EDSeizure Time Seen by Provider: 03/11/19 02:20 Hx Obtained From: Patient, Family/Remedial Project Manager Onset/Duration: Lasting Minutes - 15-20 minutes, Resolved Severity Currently: None Aggravating Factor(s): nothing Alleviating Factor(s): nothing Associated Signs And Symptoms: Positive: Other - left arm and back pain from fall according to female senior financial - Allergies/Home Medications Allergies/Adverse Reactions: Allergies Allergy/AdvReac Type Severity Reaction Status Date / Time No Known Allergies Allergy Verified 03/11/19 01:58 Home Medications: Home Medications Sildenafil (NF) 100 mg PO DAILY PRN 03/11/19 [History Confirmed 03/11/19] PMH/Surg Hx/FS Hx/Imm Hx Cardiovascular History: Reports: Hx Atrial Fibrillation, Hx Hypertension, Hx Valvular Heart Disease - MV replacement 1996, Other Cardiovascular Problems/ Disorders - endocarditis Musculoskeletal History: Reports: Hx Gout - rt elbow Sensory History: Reports: Hx Contacts or Glasses - glasses not w/ pt at this time Opthamlomology History: Reports: Hx Contacts or Glasses - glasses not w/ pt at this time - Surgical History Surgery Procedure, Year, and Place: MV replaced 1996 - Immunization History Date of Tetanus Vaccine: unk Date of Influenza Vaccine: fall 2013 Infectious Disease History: No Infectious Disease History: Denies: Traveled Outside the [place] in Last 30 Days - Family History Known Family History: Positive: Cardiac Disease - Mother -- CHF. at 86. , Respiratory Disease - Mother -- COPD. at 86. - Social History Alcohol Use: Daily Alcohol Amount: several beers daily Hx Substance Use: No Substance Use Type: Reports: None Hx Tobacco Use: Yes Smoking Status (MU): Current Every Day Smoker Review of Systems Positive: Other - left and back pain from fall according to female senior financial Neurological: Other - seizure All Other Systems Reviewed And Are Negative: Yes Physical Exam - Summary Physical Exam Summary: Constitutional: Well-developed, Well-nourished, Alert. (-) Distressed Skin: Warm, Dry HENT: large hematoma on right posterior scalp Eyes: Conjunctiva normal Neck: Musculoskeletal ROM normal neck. (-) JVD, (-) Stridor, (-) Tracheal deviation Cardio: Rhythm regular, rate normal, Heart sounds normal; Intact distal pulses; The pedal pulses are 2+ and symmetric. Radial pulses are 2+ and symmetric. (-) Murmur Pulmonary/Chest wall: Effort normal. (-) Respiratory distress, (-) Wheezes, (-) Rales Abd: Soft, (-) tenderness, (-) Distension, (-) Guarding, (-) Rebound Musculoskeletal: C-spine nontender Lymph: (-) Cervical adenopathy Neuro: Alert, Oriented to person, place, and time but not event Psych: Mood and affect Normal Triage Information Reviewed: Yes Vital Signs On Initial Exam: Initial Vitals Temp Pulse Resp BP Pulse Ox 100 F 99 14 140/106 96 03/11/19 01:55 03/11/19 01:55 03/11/19 01:55 03/11/19 01:55 03/11/19 01:55 Vital Signs Reviewed: Yes Procedures - Sedation Patient Received Moderate/Deep Sedation with Procedure: No Diagnostics - Vital Signs Vital Signs Temp Pulse Resp BP Pulse Ox 03/11/19 03:00 82 23 96 03/11/19 02:23 96 03/11/19 02:22 82 12 97 03/11/19 01:55 100 F 99 14 140/106 96 - Laboratory Lab Results: Lab Results 03/11/19 03/11/19 Range/Units 02:50 02:50 WBC 7.8 (3.5-10.8) 10^3/uL RBC 4.02 L (4.18-5.48) 10^6 /uL Hgb 14.0 (14.0-18.0) g/dL Hct 40 L (42-52) % MCV 99 H (80-94) fL MCH 35 H (27-31) pg MCHC 35 (31-36) g/dL RDW 14 (10-15) % Plt Count 153 (150-450) 10^3/uL MPV 8.8 (7.4-10.4) fL Neut % (Auto) 76.4 % Lymph % (Auto) 11.5 % [place] % (Auto) 7.4 % Eos % (Auto) 4.2 % Baso % (Auto) 0.5 % Absolute Neuts (auto) 6.0 (1.5-7.7) 10^3/ul Absolute Lymphs (auto) 0.9 L (1.0-4.8) 10^3/ul Absolute Monos (auto) 0.6 (0-0.8) 10^3/ul Absolute Eos (auto) 0.3 (0-0.6) 10^3/ul Absolute Basos (auto) 0.0 (0-0.2) 10^3/ul Absolute Nucleated RBC 0.0 10^3/ul Nucleated RBC % 0.0 INR (Anticoag Therapy) 1.10 H (0.82-1.09) Result Diagrams: 03/11/19 02:50 03/11/19 02:50 Lab Statement: Any lab studies that have been ordered have been reviewed, and results considered in the medical decision making process. - CT C-Spine CT CT Interpretation Completed By: Radiologist Summary of CT Findings: IMPRESSION: No evidence of acute cervical spine fracture. ED physician has reviewed this report. Brain CT CT Interpretation Completed By: Radiologist Summary of CT Findings: IMPRESSION: There is a right parietal scalp hematoma noted. No evidence of acute. intracranial hemorrhage or significant mass effect. ED physician has reviewed this report. - EKG 0225 Cardiac Rate: NL Summary of EKG Findings: A-fib at 96 bpm, normal QRS, normal QTc, ST elevated in V2 V3, depressed V5 V6, T waves inverted V5 V6. Overall A-fib and LVH. Complex Multi-Symp Course/Dx Course Of Treatment: 69 year old M presenting to [facility] complains of a second seizure in three weeks earlier today 03/11/2019. Female senior financial reports seizure was witnessed by her and that it lasted for 15-20 minutes and that the pt's eyes were closed for most of it. Physical exam findings: large hematoma on right posterior scalp, c-spine non tender, heart and lungs nml, abd benign, alert and oriented to person and place and time but not event. Bloodwork results with no significant abnormalities except for L RBC, L Hct, H MCV, H MCH, L Absolute Lymphs, H INR (Anticoag Therapy), H Glucose, L Magnesium , H AST, L Total Protein. Urinalysis results with no significant abnormalities. Toxicology results with no significant abnormalities. An EKG shows A-fib at 96 bpm, normal QRS, normal QTc, ST elevated in V2 V3, depressed V5 V6, T waves inverted V5 V6. Overall A-fib and LVH. CT C-Spine shows, per radiologist:No evidence of acute cervical spine fracture. CT Brain shows, per radiologist: There is a right parietal scalp hematoma noted. No evidence of acute intracranial hemorrhage or significant mass effect. In the ED course, the patient was given Lorazepam INJ 1 mg IV, Ns, Magnesium sulfate 1 gm in 100 ml IV. We discussed patient care with at 0614 who recommended admission.The patient will be admitted to the hospitalist. The patient is agreeable with this plan. - Diagnoses Provider Diagnoses: Seizure, Alcohol withdrawal - Physician Notifications Discussed Care Of Patient With: Naveen Evans - Thinks pt was having alcohol withdrawal related seizures. Time Discussed With Above Provider: 06:05 Discharge ED - Sign-Out/Discharge Documenting (check all that apply): Patient Departure - admit - Discharge Plan Condition: Stable Disposition: ADMITTED TO [facility] - Billing Disposition and Condition Condition: STABLE Disposition: Admitted to [facility] - Attestation Statements Document Initiated by Mackenzie: Yes Documenting Scribe: Christopher Pavon Provider For Whom Mackenzie is Documenting (Include Credential): Rola Padron MD Scribe Attestation: I, Christopher Pavon, scribed for Rola Bright MD on 03/11/19 at 2049. Scribe Documentation Reviewed: Yes Provider Attestation: The documentation as recorded by the Christopher canseco accurately reflects the service I personally performed and the decisions made by me, Rola Bright MD Status of Scribe Document: Viewed Consult Consult: Consult with at 0614. Hospitalist will receive pt for admission.
[2019-03-11 03:48] LABS: Alcohol < 10 mg/dL (<10)
[2019-03-11 04:03] LABS: AST 48 U/L (13-39); Anion Gap 5 mmol/L (2-11); Potassium 4.8 mmol/L (3.5-5.0)
[2019-03-11 04:48] LABS: Urine Appearance Clear; Urine Bilirubin Negative (Negative); Urine Blood Negative (Negative); Urine Color Yellow; Urine Glucose Negative (Negative); Urine Ketones Negative (Negative); Urine Nitrite Negative (Negative); Urine Protein Negative (Negative); Urine Specific Gravity 1.013 (1.010-1.030); Urine Urobilinogen Negative (Negative)
[2019-03-11] MEDS ORDERED: Lorazepam PYXIS KEY PRN (04:51)
[2019-03-11] MEDS ORDERED: Magnesium Sulfate 1 GM IV* 1 GM/100 ML BAG IV ONE (04:51)
[2019-03-11] MEDS ORDERED: LORazepam INJ* 2 MG/ML 1 ML VIAL IV PUSH ONE (04:51)
[2019-03-11] MEDS ORDERED: Lorazepam PYXIS KEY ONE (04:54)
[2019-03-11] MEDS ORDERED: chlordiazePOXIDE CAP* 25 MG PO ONE (07:44)
--- NOTE | 2019-03-11 07:53 | ADMNOTE ---
Subjective Date of Service: 03/11/19 Interval History: ADMISSION HISTORY AND PHYSICAL EXAM: Allergies Allergy/AdvReac Type Severity Reaction Status Date / Time No Known Allergies Allergy Verified 03/11/19 01:58 Home Medications Medication Instructions Recorded Confirmed Type Allopurinol TAB* [Zyloprim 300 MG 300 mg PO DAILY 05/21/12 03/11/19 History TAB*] Aspirin 81 mg CHEW TAB* 81 mg PO DAILY 05/21/12 03/11/19 History Lisinopril TAB* [Prinivil TAB 5 5 mg PO DAILY 05/21/12 03/11/19 History MG*] Multivitamins/Minerals TAB* [Thera 1 tab PO DAILY 05/21/12 03/11/19 History M Plus TAB*] PARoxetine HCL TAB* [Paxil TAB*] 20 mg PO DAILY 05/21/12 03/11/19 History Metoprolol Succinate XL TAB* 25 mg PO DAILY 02/13/16 03/11/19 History [Toprol XL TAB*] Sildenafil (NF) 100 mg PO DAILY PRN 03/11/19 03/11/19 History HPI: The patient had a seizure 3 weeks ago. At some point he saw Dr. Baca who checked some labs. This morning he had another seizure and his daughter witnessed it and called 911. The patient states he drank 4 beers yesterday. His family has been urging him to seek help for his alcoholism. Family History: Findings - Sister had melanoma. Parents had COPd, heart failure , dementia. Social History: Findings - Current smoker. Alcoholism. Lives with his 2 children. Daughter Martha is his SDM. Past Medical History: Findings - Mitral valve repair 2003. Atrial fib at least since 2010. HTN, gout Review of Systems - Measurements Intake and Output: Intake and Output Last 24 Hours 03/09/19 03/10/19 03/11/19 03/12/19 06:59 06:59 06:59 06:59 Intake Total 1000 100 Balance 1000 100 Weight 150 lb Intake: IV Fluids 1000 100 - Review of Systems Constitutional Symptoms: Negative: Weight Gain, Weight Loss, Weakness, Fatigue, Fever, Night Sweats, Unexplained Falls, Other Dermatology: Positive: Normal HEENT: Positive: Normal Eyes: Positive: Normal Thyroid: Positive: Normal Pulmonary: Positive: Normal Cardiology: Positive: Other - hx atrial fib Gastroenterology: Positive: Normal Genital - Urinary: Positive: Normal Musculoskeletal: Positive: Joint Pain Endocrinology: Positive: Normal Hematologic/Lymphatic: Negative: Anemia, Easy Bruising, Hx Leukemia, Hx Lymphoma, Use of Anticoagulant, Use of Antiplatelet Drugs, Other Neurology: Positive: Hx of Seizures Psychiatry: Positive: Depression Allergic/Immunologic: Negative: Hx Anaphylaxis, Hx Angioedema, Hx Environmental, Hx Seasonal, Asthma, Hx HIV, Immunocompromise, Swollen Glands LymphNodes, Other Objective Active Medications: Allopurinol (Zyloprim Tab*) 300 mg PO DAILY DIANNE Aspirin (Aspirin 81 Mg Chew Tab*) 81 mg PO DAILY DIANNE Chlordiazepoxide (Librium Cap*) 25 mg PO TID DIANNE Enoxaparin Sodium (Lovenox(*)) 40 mg SUBCUT Q24H DIANNE Lisinopril (Prinivil Tab*) 2.5 mg PO DAILY DIANNE Metoprolol Succinate (Toprol Xl Tab*) 25 mg PO DAILY DIANNE Miscellaneous (Ativan Pyxis Daniels) 1 ea N/A .ATIVAN IV DANIELS PRN PRN Reason: PYXIS DANIELS Vital Signs - 8 hr 03/11/19 03/11/19 03/11/19 01:55 02:22 02:23 Temperature 100 F Pulse Rate 99 82 Respiratory 14 12 Rate Blood Pressure 140/106 (mmHg) O2 Sat by Pulse 96 97 96 Oximetry 03/11/19 03/11/19 03/11/19 03:00 04:00 04:15 Temperature Pulse Rate 82 101 Respiratory 23 34 16 Rate Blood Pressure 136/81 (mmHg) O2 Sat by Pulse 96 95 Oximetry 03/11/19 05:01 Temperature Pulse Rate Respiratory 15 Rate Blood Pressure (mmHg) O2 Sat by Pulse Oximetry Oxygen Devices in Use Now: None Appearance: Alert, supine on ED stretcher. In fair spirits. Look comfortable. Eyes: No Scleral Icterus Ears/Nose/Mouth/Throat: Clear Oropharnyx, Mucous Membranes Moist Neck: NL Appearance and Movements; NL JVP, No Thyroid Enlargement, Masses Respiratory: Symmetrical Chest Expansion and Respiratory Effort, Clear to Auscultation, Clear to Percussion Cardiovascular: No Edema, - - irreg Lymphatic: No Cervical Adenopathy Extremities: No Edema, No Clubbing, Cyanosis Skin: No Rash or Ulcers, No Nodules or Sclerosis, - Neurological: Alert and Oriented x 3, NL Sensation Result Diagrams: 03/11/19 02:50 03/11/19 02:50 Additional Lab and Data: Lab Results 03/11/19 03/11/19 Range/Units 02:50 02:50 WBC 7.8 (3.5-10.8) 10^3/uL RBC 4.02 L (4.18-5.48) 10^6 /uL Hgb 14.0 (14.0-18.0) g/dL Hct 40 L (42-52) % MCV 99 H (80-94) fL MCH 35 H (27-31) pg MCHC 35 (31-36) g/dL RDW 14 (10-15) % Plt Count 153 (150-450) 10^3/uL MPV 8.8 (7.4-10.4) fL Neut % (Auto) 76.4 % Lymph % (Auto) 11.5 % [place] % (Auto) 7.4 % Eos % (Auto) 4.2 % Baso % (Auto) 0.5 % Absolute Neuts (auto) 6.0 (1.5-7.7) 10^3/ul Absolute Lymphs (auto) 0.9 L (1.0-4.8) 10^3/ul Absolute Monos (auto) 0.6 (0-0.8) 10^3/ul Absolute Eos (auto) 0.3 (0-0.6) 10^3/ul Absolute Basos (auto) 0.0 (0-0.2) 10^3/ul Absolute Nucleated RBC 0.0 10^3/ul Nucleated RBC % 0.0 INR (Anticoag Therapy) 1.10 H (0.82-1.09) Assess/Plan/Problems-Billing Assessment: - Patient Problems (1) Alcohol abuse, daily use Current Visit: No Status: Acute Code(s): F10.10 - ALCOHOL ABUSE, UNCOMPLICATED SNOMED Code(s): 159152149 Comment: SW consult. Thiamine. (2) Alcohol withdrawal seizure Current Visit: Yes Status: Acute Code(s): F10.239 - ALCOHOL DEPENDENCE WITH WITHDRAWAL, UNSPECIFIED; R56.9 - UNSPECIFIED CONVULSIONS SNOMED Code(s): 760971915 Comment: Chlordiazepoxide for 2 days. Seizure precautions. (3) Cardiomyopathy Current Visit: Yes Status: Acute Code(s): I42.9 - CARDIOMYOPATHY, UNSPECIFIED SNOMED Code(s): 49360480 Comment: Fup echo ordered. Continue BB, lisinopril. (4) HTN (hypertension) Current Visit: No Status: Acute Code(s): I10 - ESSENTIAL (PRIMARY) HYPERTENSION SNOMED Code(s): 21971152 Comment: Continue lisinopril and metoprolol. Reduce lisinopril to 2.5 mg daily. (5) Gout Current Visit: No Status: Acute Code(s): M10.9 - GOUT, UNSPECIFIED SNOMED Code(s): 87614912 Comment: Continue allopurinol. (6) Depression Current Visit: No Status: Acute Code(s): F32.9 - MAJOR DEPRESSIVE DISORDER, SINGLE EPISODE, UNSPECIFIED SNOMED Code(s): 17359147 Comment: Continue Paxil, reduce dose to 10 mg. (7) Tobacco abuse Current Visit: No Status: Acute Code(s): Z72.0 - TOBACCO USE SNOMED Code(s ): 492871837 Comment: Patient advised to quit smoking. Patient declined NRT.
[2019-03-11] MEDS: Allopurinol TAB* 300 MG PO SCH (10:20)
[2019-03-11] MEDS: Thiamine TAB* 100 MG TAB PO SCH (10:21)
[2019-03-11] MEDS: Metoprolol Succinate XL TAB* 25 MG PO SCH (10:21)
[2019-03-11] MEDS: Lisinopril TAB* 5 MG PO SCH (10:21)
[2019-03-11] MEDS: PARoxetine HCL TAB* 10 MG PO SCH (10:22)
[2019-03-11] MEDS: Enoxaparin(*) 40 MG/0.4 ML SYR SUBCUT SCH (10:22)
[2019-03-11] MEDS: Aspirin 81 mg CHEW TAB* 81 MG TAB.CHEW PO SCH (10:22)
[2019-03-11] MEDS ORDERED: Perflutren Lipid Microsphere* 3 ML VIAL ONE (11:10)
[2019-03-11] MEDS: chlordiazePOXIDE CAP* 25 MG PO SCH ×2 (14:20→21:33)
--- NOTE | 2019-03-11 14:37 | ECHO ---
*[facility]* [place] [address] Fax #: [phone] Transthoracic Echocardiogram Patient: Ta Lobato : 1950 Study Date: 03/11/2019 Age: 69 Gender: M HR: 116 bpm Height: 69 in /175.3 cm BSA: 1.83 m^2 Weight: 149.7 lb /68 kg BMI: 22.2 kg/m^2 *Rod Welder: * Antoinette Orlando RDCS RN *Referring Physician: * Ace Gutierrez *Reading Physician: * Mikala Barbosa MD Indications: Cardiomyopathy. History: Atrial fibrillation. Mitral valve repair in 2003. ETOH abuse. Recent seizures. Risk factors: Current tobacco use. Hypertension. Conclusions Summary: - Left ventricle: Systolic function is severely reduced. The estimated ejection fraction is 25-30%. Left ventricular diastolic function parameters are indeterminate due to atrial fibrillation and hx mitral valve repair, but evidence of elevated LVEDP based on E/e'. - Right ventricle: Systolic function is moderately reduced. - Left atrium: The atrium is moderately to severely dilated. - Right atrium: The atrium is moderately dilated. - Mitral valve: S/P mitral valve repair. The leaflets are mildly thickened. The findings are consistent with mild stenosis. There is mild to moderate regurgitation. The mean diastolic gradient is 4.0 mm Hg. The valve area by pressure half-time is 2.5 cm^2, by continuity equation MVA 1.8 cm2 (based on mitral valve VTI of 34 cm. - Aortic valve: The valve is trileaflet. The leaflets are mildly thickened. - Tricuspid valve: There is mild-moderate regurgitation. - Pulmonary arteries: Systolic pressure is at the upper limits of normal, estimated to be 35 mm Hg. - Compared with prior echocardiogram of 02/14/16, ejection fraction has decreased 40-45%, right ventricle hypokinesis is new, mitral regurgitation stable, mitral stenosis is new, tricuspid regurgitation previously mild to moderate. Study data: Transthoracic echocardiogram. Procedure: Transthoracic echocardiography was performed. Image quality was fair. The study was technically limited due to smoking history. Intravenous Definity 2 ml was administered to enhance imaging. Complete 2D, spectral Doppler, and color flow Doppler. Location: Bedside. Patient status: Inpatient. Patient room number: 416-01. Rhythm: Atrial fibrillation. PVCs. Findings Left ventricle: The cavity size is normal. Wall thickness is mildly increased. Systolic function is severely reduced. The estimated ejection fraction is 25-30%. Left ventricular diastolic function parameters are indeterminate due to atrial fibrillation and hx mitral valve repair, but evidence of elevated LVEDP based on E/e'. Right ventricle: The cavity size is normal. Systolic function is moderately reduced. Ventricular septum: Ventricular septal wall motion has a postoperative appearance. Left atrium: The atrium is moderately to severely dilated. Right atrium: The atrium is moderately dilated. Mitral valve: S/P mitral valve repair. The leaflets are mildly thickened. The findings are consistent with mild stenosis. There is mild to moderate regurgitation. Aortic valve: The valve is trileaflet. The leaflets are mildly thickened. Cusp separation is mildly reduced. There is no evidence of stenosis. There is no regurgitation. Tricuspid valve: The valve is structurally normal. There is no evidence of stenosis. There is mild-moderate regurgitation. Pulmonic valve: The valve is structurally normal. There is no evidence of stenosis. There is trace to mild regurgitation. Aorta: Aortic root: The aortic root is not dilated. Ascending aorta: The ascending aorta is not dilated. Aortic arch: The aortic arch is not visualized. Pericardium: There is no pericardial effusion. Pulmonary arteries: The main pulmonary artery is normal-sized. Systolic pressure is at the upper limits of normal, estimated to be 35 mm Hg. Systemic veins: Inferior vena cava: The vessel is normal in size. There is (< 50%) respiratory change in the IVC dimension. Measurements Left ventricle Value Ref Aortic valve Value Ref TANMAY, LAX 5.5 cm 4.2 - 5.8 Sharla diam, ED 2.4 cm ----- ESD, LAX 3.9 cm 2.5 - 4.0 Peak v, S 1.42 m/sec ----- FS, LAX 29 % 25 - 43 VTI, S 17.0 cm ----- PW, ED (H) 1.2 cm 0.6 - 1.0 Mean grad, S 3.0 mm Hg ----- IVS/PW, ED 0.94 Peak grad, S 8.0 mm Hg ----- E', lat sharla, TDI (L) 9.5 cm/sec >=10.0 LVOT/AV, VTI ratio 0.84 --- -- E/e', lat sharla, 17 TDI Mitral valve Value Ref E', med sharla, TDI 8.9 cm/sec >=7.0 Peak E 1.59 m/sec --- -- E/e', med sharla, 18 Decel time 252 ms ----- TDI PHT 90 ms ----- E', avg, TDI 9.2 cm/sec Mean grad, D 4.0 mm Hg ----- E/e', avg, TDI (H) 17 <=14 Peak grad, D 11.0 mm Hg --- -- MVA, PHT 2.5 cm^2 ----- LVOT Value Ref Peak segundo, S 0.99 m/sec Pulmonic valve Value Ref VTI, S 14.2 cm Peak v, S 0.61 m/sec ----- Mean grad, S 2 mm Hg Peak grad, S 1.0 mm Hg ----- Ventricular septum Value Ref Tricuspid valve Value Ref IVS, ED (H) 1.2 cm 0.6 - 1.0 TR peak v 2.6 m/sec <=2.8 Peak RV-RA grad, S 27 mm Hg ----- Right ventricle Value Ref TANMAY, LAX 3.7 cm Aortic root Value Ref TANMAY minor ax, A4C 3.3 cm 1.9 - 3.5 Root diam 3.2 cm <4.0 mid Pressure, S 35 mm Hg Ascending aorta Value Ref AAo AP diam, S 3.3 cm ----- Left atrium Value Ref AP dim, ES (H) 4.10 cm 3.00 - Pulmonary artery Value Ref 4.00 Pressure, S 35.0 mm Hg ----- ML dim, A4C 4.9 cm SI dim, A4C 7.0 cm Inferior vena cava Value Ref Vol/bsa, ES, 1-p (H) 50 ml/m^2 12 - 37 Diam 2.0 cm ----- A4C Vol/bsa, ES, A/L (H) 61 ml/m^2 16 - 34 Right atrium Value Ref ML dim, ES, A4C (H) 5.3 cm 2.6 - 4.4 SI dim, ES, A4C (H) 5.9 cm 3.4 - 5.3 Estimated RAP 8 mm Hg Legend: (L) and (H) lonnie values outside specified reference range. Prepared and electronically signed by Mikala Barbosa MD 03/11/2019 14:36
[2019-03-12] MEDS: Enoxaparin(*) 40 MG/0.4 ML SYR SUBCUT SCH (08:41)
[2019-03-12] MEDS: Metoprolol Succinate XL TAB* 25 MG PO SCH (08:41)
[2019-03-12] MEDS: chlordiazePOXIDE CAP* 25 MG PO SCH ×3 (08:42→21:51)
[2019-03-12] MEDS: Thiamine TAB* 100 MG TAB PO SCH (08:42)
[2019-03-12] MEDS: Aspirin 81 mg CHEW TAB* 81 MG TAB.CHEW PO SCH (08:42)
[2019-03-12] MEDS: Allopurinol TAB* 300 MG PO SCH (08:42)
[2019-03-12] MEDS: Lisinopril TAB* 5 MG PO SCH (08:42)
[2019-03-12] MEDS: PARoxetine HCL TAB* 10 MG PO SCH (08:42)
[2019-03-12] MEDS ORDERED: Lisinopril TAB* 5 MG PO ONE (11:13)
--- NOTE | 2019-03-12 11:30 | PN ---
Subjective Date of Service: 03/12/19 Interval History: No c/o. Family History: Findings - Sister had melanoma. Parents had COPd, heart failure , dementia. Social History: Findings - Current smoker. Alcoholism. Lives with his 2 children. Daughter Martha is his SDM. Past Medical History: Findings - Mitral valve repair 2003. Atrial fib at least since 2010. HTN, gout Objective Active Medications: Allopurinol (Zyloprim Tab*) 300 mg PO DAILY [facility] Last Admin: 03/12/19 08:42 Dose: 300 mg Aspirin (Aspirin 81 Mg Chew Tab*) 81 mg PO DAILY [facility] Last Admin: 03/12/19 08:42 Dose: 81 mg Chlordiazepoxide (Librium Cap*) 25 mg PO TID [facility] Last Admin: 03/12/19 08:42 Dose: 25 mg Enoxaparin Sodium (Lovenox(*)) 40 mg SUBCUT Q24H [facility] Last Admin: 03/12/19 08:41 Dose: 40 mg Lisinopril (Prinivil Tab*) 5 mg PO DAILY [facility] Metoprolol Succinate (Toprol Xl Tab*) 25 mg PO DAILY [facility] Last Admin: 03/12/19 08:41 Dose: 25 mg Miscellaneous (Ativan Pyxis Daniels) 1 ea N/A .ATIVAN IV DANIELS PRN PRN Reason: PYXIS DANIELS Paroxetine HCl (Paxil Tab*) 10 mg PO DAILY [facility] Last Admin: 03/12/19 08:42 Dose: 10 mg Thiamine HCl (Vitamin B-1 Tab*) 100 mg PO DAILY [facility] Last Admin: 03/12/19 08:42 Dose: 100 mg Vital Signs - 8 hr 03/12/19 03/12/19 07:15 08:42 Temperature 97.7 F Pulse Rate 86 Respiratory 16 16 Rate Blood Pressure 114/74 (mmHg) O2 Sat by Pulse 99 Oximetry Oxygen Devices in Use Now: None Appearance: Alert, partly up in bed. In good spirits. Looks comfortable. Eyes: No Scleral Icterus Neck: NL Appearance and Movements; NL JVP, No Thyroid Enlargement, Masses Respiratory: Symmetrical Chest Expansion and Respiratory Effort, Clear to Auscultation, Clear to Percussion Cardiovascular: NL Sounds; No Murmurs; No JVD, No Edema, - - irreg Extremities: No Edema, No Clubbing, Cyanosis, - Skin: No Rash or Ulcers, No Nodules or Sclerosis, - Neurological: Alert and Oriented x 3, NL Sensation, - - No tremor. Result Diagrams: 03/11/19 02:50 03/11/19 02:50 Additional Lab and Data: Lab Results 03/11/19 03/11/19 Range/Units 02:50 02:50 WBC 7.8 (3.5-10.8) 10^3/uL RBC 4.02 L (4.18-5.48) 10^6 /uL Hgb 14.0 (14.0-18.0) g/dL Hct 40 L (42-52) % MCV 99 H (80-94) fL MCH 35 H (27-31) pg MCHC 35 (31-36) g/dL RDW 14 (10-15) % Plt Count 153 (150-450) 10^3/uL MPV 8.8 (7.4-10.4) fL Neut % (Auto) 76.4 % Lymph % (Auto) 11.5 % [place] % (Auto) 7.4 % Eos % (Auto) 4.2 % Baso % (Auto) 0.5 % Absolute Neuts (auto) 6.0 (1.5-7.7) 10^3/ul Absolute Lymphs (auto) 0.9 L (1.0-4.8) 10^3/ul Absolute Monos (auto) 0.6 (0-0.8) 10^3/ul Absolute Eos (auto) 0.3 (0-0.6) 10^3/ul Absolute Basos (auto) 0.0 (0-0.2) 10^3/ul Absolute Nucleated RBC 0.0 10^3/ul Nucleated RBC % 0.0 INR (Anticoag Therapy) 1.10 H (0.82-1.09) Assess/Plan/Problems-Billing Assessment: - Patient Problems (1) Alcohol abuse, daily use Current Visit: No Status: Acute Code(s): F10.10 - ALCOHOL ABUSE, UNCOMPLICATED SNOMED Code(s): 793469522 Comment: SW consult. Thiamine. (2) Alcohol withdrawal seizure Current Visit: Yes Status: Acute Code(s): F10.239 - ALCOHOL DEPENDENCE WITH WITHDRAWAL, UNSPECIFIED; R56.9 - UNSPECIFIED CONVULSIONS SNOMED Code(s): 980424684 Comment: Chlordiazepoxide for [address] Baca will arrange neurology fup. Dr. Baca told me that the patient has not been in his office for about 3 years. (3) Cardiomyopathy Current Visit: Yes Status: Acute Code(s): I42.9 - CARDIOMYOPATHY, UNSPECIFIED SNOMED Code(s): 25615225 Comment: Fup echo showed severe decrease in LVEF. Continue BB, resume 5 mg dose of lisinopril. Continue ASA. Discussed with Dr. Huntley. Dr. Baca will arrange cardiology fup. (4) HTN (hypertension) Current Visit: No Status: Acute Code(s): I10 - ESSENTIAL (PRIMARY) HYPERTENSION SNOMED Code(s): 09285443 Comment: Continue lisinopril and metoprolol. Reduce lisinopril to 2.5 mg daily. (5) Gout Current Visit: No Status: Acute Code(s): M10.9 - GOUT, UNSPECIFIED SNOMED Code(s): 80765461 Comment: Continue allopurinol. (6) Depression Current Visit: No Status: Acute Code(s): F32.9 - MAJOR DEPRESSIVE DISORDER, SINGLE EPISODE, UNSPECIFIED SNOMED Code(s): 26895427 Comment: Continue Paxil, reduce dose to 10 mg. (7) Tobacco abuse Current Visit: No Status: Acute Code(s): Z72.0 - TOBACCO USE SNOMED Code(s ): 398328036 Comment: Patient advised to quit smoking. Patient declined NRT. (8) Atrial fibrillation with rapid ventricular response Current Visit: No Status: Acute Code(s): I48.91 - UNSPECIFIED ATRIAL FIBRILLATION SNOMED Code(s): 130037664373934 Comment: PAF s/p [place] cardioversion 2017. Patient advised to limit or stop caffeine, alcohol, and tobacco use. Not a good candidate for AC with continued alcohol abuse.
[2019-03-13] MEDS: Allopurinol TAB* 300 MG PO SCH (08:39)
[2019-03-13] MEDS: Aspirin 81 mg CHEW TAB* 81 MG TAB.CHEW PO SCH (08:39)
[2019-03-13] MEDS: PARoxetine HCL TAB* 10 MG PO SCH (08:40)
[2019-03-13] MEDS: chlordiazePOXIDE CAP* 25 MG PO SCH (08:40)
[2019-03-13] MEDS: Metoprolol Succinate XL TAB* 25 MG PO SCH (08:40)
[2019-03-13] MEDS: Thiamine TAB* 100 MG TAB PO SCH (08:40)
[2019-03-13] MEDS: Enoxaparin(*) 40 MG/0.4 ML SYR SUBCUT SCH (08:42)
[2019-03-13] MEDS ORDERED: Lisinopril TAB* 5 MG PO SCH (09:00)
--- NOTE | 2019-03-13 09:45 | DS ---
CC: Dr. Baca * DISCHARGE SUMMARY: DATE OF ADMISSION: 03/11/19 DATE OF DISCHARGE: 03/13/19 HISTORY OF PRESENT ILLNESS: This 69-year-old man presented after a seizure. He first had a seizure about 3 weeks ago[address] He saw Dr[address] Baca and had an initial evaluation. On the morning of admission, he had another seizure. In the emergency room, he had a witnessed seizure too. History is detailed in the admission note. The patient told me on one occasion, he drank 8 to 10 beers a day. He may have told Dr. Baca a larger amount. The patient was treated with chlordiazepoxide to prevent withdrawal seizures and also to reduce other withdrawal symptoms. He did quite well in the hospital. There were no seizures or other neurologic events or any signs of withdrawal. He will not get any further chlordiazepoxide on discharge. He did have an echocardiogram, which showed severe cardiomyopathy with left ventricular ejection fraction of 25% to 30%. There was mild mitral stenosis and mild to moderate regurgitation. I note he has a history of prior mitral valve intervention. I note the patient was already on aspirin, a beta-eduarda, and an ROC inhibitor. Further management of his cardiomyopathy, I believe should be left to director transition. I did discuss this briefly with Dr. Huntley. The patient was seen by the social service director who discussed treatment options for his alcoholism. No changes were made in his medications other than decreasing his paroxetine to 10 mg daily and adding thiamine 100 mg daily. FINAL DIAGNOSES: 1. Alcohol withdrawal seizure. 2. Alcohol abuse. 3. Cardiomyopathy. 4. Hypertension. 5. Gout. 6. Depression. 7. Tobacco abuse. DISCHARGE MEDICATIONS: 1. Paroxetine 10 mg daily. 2. Thiamine 100 mg daily. 3. Allopurinol 300 mg daily. 4. Multivitamin 1 daily. 5. Lisinopril 5 mg daily. 6. Aspirin 81 mg daily. 7. Metoprolol succinate 25 mg daily. 8. Sildenafil as prescribed. CONDITION ON DISCHARGE: stable DISPOSITION ON DISCHARGE: home [id number]/[facility] #: [id number] [facility]
[2019-03-13 10:06] VITALS: BP 103/65
== END 2019-03-13 11:00 | disposition home or self-care (01) | DRG 897 ==
LOC: ED 01:50 → MED 07:43
PROVIDERS: ADMIT Internal Medicine; ATTEND Internal Medicine
DX: F10.239 Alcohol dependence with withdrawal, unspecified (principal); G40.89 Other seizures; I42.9 Cardiomyopathy, unspecified; T82.857A Stenosis of other cardiac prosthetic devices, implants and grafts, initial encounter; Y90.9 Presence of alcohol in blood, level not specified; I48.91 Unspecified atrial fibrillation; I10 Essential (primary) hypertension; M10.9 Gout, unspecified; F32.9 Major depressive disorder, single episode, unspecified; Y65.8 Other specified misadventures during surgical and medical care; F17.200 Nicotine dependence, unspecified, uncomplicated; Z79.82 Long term (current) use of aspirin; Z95.2 Presence of prosthetic heart valve; Y92.9 Unspecified place or not applicable
CPT/HCPCS: 36415; 70450; 72125; 80053; 80320; 81003; 83605; 83735; 85025; 85610; 93005; 93306; 96365; 96375; 99284; A9270-GY; C8929; G0480; J1650; J2060; J3475